=== PATIENT | female | born 1965 | race Caucasian/White ===

== ENCOUNTER 2016-11-28 09:31 | Day surgery (SDC) | payer OTHER ==
[2016-11-28] VITALS (17 sets, daily range): BP systolic 98–143; BP diastolic 67–96; PULSE 62–79; RESP 16–18; Ht 157.5 cm; Wt 81.6 kg
[~2016-11-28] VITALS: Ht 157.5 cm; Wt 81.6 kg
[~2016-11-28 09:31] MED LIST: CEFAZOLIN 2 GM/50 ML (PMX) 50 ML IVPB SCH; SOD CHLORIDE 0.9% 1,000 ML IV SCH
[2016-11-28] MEDS ORDERED: OMEP20CA16 PO (09:56)
--- NOTE | 2016-11-28 11:06 | RADRPT ---
PROCEDURE: Chest Radiograph. CLINICAL INDICATION: Preop TECHNIQUE: Single frontal chest radiograph. COMPARISON: None available FINDINGS: The cardiomediastinal silhouette is within normal limits. No infiltrate or effusion is seen. Th e bones are intact. IMPRESSION: 1. Unremarkable chest radiograph. RPTAT: KK .Adam Knight MD, MD Date Time Electronically viewed and signed by .Adam Knight MD, on 11/28/2016 11:05 .B/
[2016-11-28] MEDS ORDERED: BUPIVACAINE 0.25% (MPF) 30 ML INJ ONE (12:07)
[2016-11-28] MEDS ORDERED: FENTAnyl 50 MCG/ML VIAL ONE (12:20)
[2016-11-28] MEDS ORDERED: MIDAZOLAM 1 MG/ML 2 ML INJ ONE (12:20)
[2016-11-28] MEDS ORDERED: MEPERIDINE 25 MG INJ IV PRN (13:30)
[2016-11-28] MEDS ORDERED: morphine (1 MG/ML) 10ML SYRINGE IV PRN ×2 (13:30)
[2016-11-28] MEDS ORDERED: DIPHENHYDRAMINE 50 MG INJ IV PRN (13:30)
[2016-11-28] MEDS ORDERED: ONDANSETRON 4 MG INJ IV PRN (13:30)
[2016-11-28] MEDS ORDERED: FENTAnyl 50 MCG/ML VIAL IV PRN (13:30)
[2016-11-28] MEDS ORDERED: NEOSTIGMINE 3 MG/3 ML SYRINGE ONE (13:33)
[2016-11-28] MEDS ORDERED: GLYCOPYRROLATE 0.4 MG INJ ONE (13:33)
[2016-11-28] MEDS ORDERED: ROCURONIUM 50 MG INJ ONE (13:33)
[2016-11-28] MEDS ORDERED: PROPOFOL 20 ML ONE (13:33)
[2016-11-28] MEDS ORDERED: LIDOCAINE 2% (SDV) 5 ML INJ ONE (13:33)
[2016-11-28] MEDS ORDERED: ONDANSETRON 4 MG INJ ONE (13:36)
--- NOTE | 2016-11-28 13:53 | OPR ---
DATE OF OPERATION: 11/28/2016 INDICATION: This is a 51-year-old female with complex internal and external hemorrhoids. She reque sts surgical repair. Risks, alternatives, benefits, and personnel were discussed with the patient. The patient expressed understanding and consents to the operation. PREOPERATIVE DIAGNOSIS: Internal and external complex grade III hemorrhoids. POSTOPERATIVE DIAGNOSIS: Internal and external complex grade III hemorrhoids. OPERATION PERFORMED: 1. Proctoplasty for prolapse of mucous membranes. CPT 99501. 2. Ligation of internal hemorrhoids, multiple procedures. CPT code 01298. 3. Anoscopy. 4. Therapeutic injection of subcutaneous Marcaine. CPT code 31651. SURGEON: Andrés Ortez MD SPECIMEN: None. COMPLICATIONS: None. ANESTHESIA: General. PROCEDURE: The patient was taken to the OR and prepped and draped in the usual sterile fashion. [place]zada rgical timeout was performed. IV antibiotics were given. Rigid proctoscopy, anoscopy was performed . There was no evidence of masses or lesions. Prep was fair. Attention was then performed to the internal hemorrhoidal arteries and their ligation. This was performed in a [id number]-tg-hoaae fashion with 0 Vicryl suture under ultrasonic guidance in multiple regions, including the 1 o'clock, the 5 o 'clock, the 6 o'clock, the 9 o'clock and 10 o'clock positions. These internal hemorrhoidal arteries were then ligated with a [id number] 0 Vicryl suture. The proctoplasty was performed by markni ng 0 Prolene from the internal hemorrhoidal artery ligation all the way down to the dentate line and tied down in each of these locations. Proctoplasty was performed. There was good hemostasis. Loc al anesthesia was injected to the mucous membranes of the perianal area for pain control. Surgical site was hemostatic. Dry dressings were applied. Dictated By: ANDRÉS FSIH/OMEGA Conf#: [id number] DID#: [id number]
[2016-11-28] MEDS ORDERED: HYDROCODONE/APAP (5/325) TAB PO ONE (14:00)
--- NOTE | 2016-11-28 20:01 | RADRPT ---
Vent Rate: 71 bpm RR Interval: 0 msec [place] Interval: 194 msec QRS Duration: 68 msec QT Interval: 436 msec QTC Interval: 473 msec P-R-T [place]: 30 - 10 - 2 degrees Normal sinus rhythm Normal ECG Electronically Signed By: Bennett Duong [id number]
== END 2016-11-28 15:54 | disposition home or self-care (01) ==
LOC: SDS 09:31
PROVIDERS: ATTEND Surgery
DX: K64.2 Third degree hemorrhoids (principal); E66.9 Obesity, unspecified; Z68.32 Body mass index [BMI] 32.0-32.9, adult
CPT/HCPCS: 45505; 46946; 71010; 84703; 93005; J2175; J2250; J2405; J2710; J3010; Z7512; Z7610